=== PATIENT | male | born 1980 | race Caucasian/White ===

== ENCOUNTER 2023-06-14 09:45 | Outpatient (CLI) | payer MEDICAID | END 2023-06-14 23:59 | disposition home or self-care (01) | LOC: RAD 09:45 | PROVIDERS: ATTEND Nurse Practitioner Psychiatric/Mental Health | DX: Z79.899 Other long term (current) drug therapy (principal) | CPT/HCPCS: 93005 ==

== ENCOUNTER 2025-05-06 07:48 | Outpatient (CLI) | payer MEDICAID ==
--- NOTE | 2025-05-06 12:41 | ELECTROCARDIOGRAPH REPORT ---
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 TANA Rodriges Measurements Intervals Pfeifer Rate: 64 P: 42 OH: 152 QRS: 32 QRSD: 85 T: 18 QT: 376 QTc: 388 Interpretive Statements Age not entered, assumed to be 52 years old for purpose of ECG interpretation Sinus rhythm RSR' in V1 or V2, probably normal variant Abnormal inferior Q waves Electronically Signed On 05-06-2025 19:17:[address] TANA Rodriges Please click the below link to view image of tracing.
== END 2025-05-06 23:59 | disposition home or self-care (01) ==
LOC: RAD 07:48
PROVIDERS: ATTEND Nurse Practitioner Psychiatric/Mental Health
DX: F20.9 Schizophrenia, unspecified (principal); Z79.899 Other long term (current) drug therapy
CPT/HCPCS: 93005